=== PATIENT | female | born 1950 | race Caucasian/White ===

== ENCOUNTER 2019-10-26 10:52 | Day surgery (SDC) | payer MEDICARE, OTHER ==
[2019-10-24 15:58] VITALS: BMI 27.3
[2019-10-26 12:37] VITALS: BP 118/70; PULSE 60; TEMP 97.9
--- NOTE | 2019-10-31 15:25 | PATH ---
Surgical Pathology Report Patient Name: BRYANNA RODRIGUEZ [facility]. Rec. #: [id number] /Age/Gender: 1950 (Age: 69) / F Account: [id number] Location: [facility] Taken: 10/26/2019 Received: 10/26/2019 Reported: 10/31/2019 Physicians: Valerie Lucas M.D. Specimen(s) Received A: BX SECOND PORTION DUODENUM B: BX GASTRIC ANTRUM C: BX GE JUNCTION Clinical History Dyspepsia Postoperative diagnosis: Gastritis Final Diagnosis A. SECOND PORTION OF DUODENUM, BIOPSY: DUODENAL MUCOSA WITH NO PATHOLOGIC FINDINGS. B. GASTRIC ANTRUM, BIOPSY: MODERATE CHRONIC GASTRITIS. IMMUNOSTAIN IS NEGATIVE FOR H. PYLORI ORGANISMS. C. 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 NEGATIVE FOR DYSPLASIA. Electronically Signed Vicenta Schaefer M.D. Gross Description A. Received in formalin, labeled "biopsy second portion of duodenum" is a langford, irregular portion of soft tissue measuring 0.3 cm. in greatest dimension. The specimen is submitted in toto in one cassette. B. Received in formalin, labeled "biopsy gastric antrum" is a langford, irregular portion of soft tissue measuring 0.3 cm. in greatest dimension. The specimen is submitted in toto in one cassette. C. Received in formalin, labeled "biopsy GE junction" is a langford, irregular portion of soft tissue measuring 0.3 cm. in greatest dimension. The specimen is submitted in toto in one cassette. 10/27/2019 [place]10/27/2019
== END 2019-10-26 12:37 | disposition home or self-care (01) ==
LOC: FASU-ENDO 10:52
PROVIDERS: ATTEND Internal Medicine Gastroenterology
PROC: 0DB68ZX Excision of Stomach, Via Natural or Artificial Opening Endoscopic, Diagnostic (ICD-10-PCS; 2019-10-26)
PROC: 0DB48ZX Excision of Esophagogastric Junction, Via Natural or Artificial Opening Endoscopic, Diagnostic (ICD-10-PCS; 2019-10-26)
PROC: 0DB98ZX Excision of Duodenum, Via Natural or Artificial Opening Endoscopic, Diagnostic (ICD-10-PCS; principal; 2019-10-26 11:27)
DX: K29.50 Unspecified chronic gastritis without bleeding (principal); K22.70 Barrett's esophagus without dysplasia; R10.13 Epigastric pain
CPT/HCPCS: 88305-TC; 88342-TC

== ENCOUNTER 2020-02-29 11:01 | Day surgery (SDC) | payer MEDICARE, OTHER ==
[2020-02-20 16:20] VITALS: BMI 25.6
[2020-02-29] MEDS ORDERED: PROPOFOL 20 ML ONE ×2 (11:18)
[2020-02-29 12:20] VITALS: TEMP 97.6
[2020-02-29 13:59] VITALS: BP 117/53; PULSE 53
--- NOTE | 2020-03-02 16:41 | PATH ---
Surgical Pathology Report Patient Name: BRYANNA RODRIGUEZ [facility]. Rec. #: [id number] /Age/Gender: 1950 (Age: 70) / F Account: [id number] Location: [facility] Taken: 02/29/2020 Received: 02/29/2020 Reported: 03/02/2020 Physicians: Valerie Lucas M.D. 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 NEGATIVE FOR DYSPLASIA. Electronically Signed Vicenta Schaefer M.D. Gross Description Received in formalin, labeled "biopsy GE junction" are 6 langford, irregular portions of soft tissue ranging from 0.3-0.4 cm. in greatest dimension. The specimens are submitted in toto in one cassette. 03/01/[facility]
== END 2020-02-29 12:35 | disposition home or self-care (01) ==
LOC: FASU-ENDO 11:01
PROVIDERS: ATTEND Internal Medicine Gastroenterology
PROC: 0DB68ZX Excision of Stomach, Via Natural or Artificial Opening Endoscopic, Diagnostic (ICD-10-PCS; 2020-02-29)
PROC: 0DB28ZX Excision of Middle Esophagus, Via Natural or Artificial Opening Endoscopic, Diagnostic (ICD-10-PCS; 2020-02-29)
PROC: 0DB38ZX Excision of Lower Esophagus, Via Natural or Artificial Opening Endoscopic, Diagnostic (ICD-10-PCS; 2020-02-29)
PROC: 0DB48ZX Excision of Esophagogastric Junction, Via Natural or Artificial Opening Endoscopic, Diagnostic (ICD-10-PCS; principal; 2020-02-29 11:48)
DX: K22.70 Barrett's esophagus without dysplasia (principal)
CPT/HCPCS: 88305-TC